=== PATIENT | female | born 1985 | race Caucasian/White ===

== ENCOUNTER 2019-11-23 01:33 | Inpatient (IN) | payer OTHER, SELFPAY ==
[2019-11-23] VITALS (153 sets, daily range): BP systolic 86–248; BP diastolic 45–221; PULSE 57–212; RESP 17; TEMP 35.9–36.8; O2SAT 70–100; BMI 26.9
--- NOTE | 2019-11-23 02:17 | LDADM ---
This patient, Yvonne Galindo, was admitted to Labor/Delivery/Recovery 103 on 11/23/19 at 01:33. Plans for labor, pain management and were discussed with patient. Patient/family oriented to hospital policies and general routines including ID bracelet, bed and alarms, visiting hours, pain management, procedures, bathroom and other care routines, personal items, smoking policy, room service/diet and guest tray routines, security routines, and visiting hours. Patient/Family are encouraged to report perceived risks to care and to ask questions if they do not understand what they are told or what they should do. See OBIX for further documentation.
[2019-11-23 02:25] LABS: Basophils Absolute Auto 0.1 K/mm3 (0.0-0.1); Basophils Percent Auto 0.5 % (0.2-1.2); Eosinophils Absolute Auto 0.2 K/mm3 (0-0.3); Eosinophils Percent Auto 1.4 % (0-4.4); Hemoglobin 12.8 g/dL (12.0-15.0); Immature Granulocyte Absolute 0.05 K/mm3 (0.00-0.031); Immature Granulocyte Percent A 0.4 % (0-0.5); Lymphocytes Absolute Auto 3.96 K/mm3 (0.9-3.2); Lymphocytes Percent Auto 35.2 % (18.3-44.2); Mean Corpuscular HGB Conc 33.7 g/dl (32-36); Mean Corpuscular Hemoglobin 31.6 pg (26-34); Mean Corpuscular Volume 93.8 fl (80-100); Mean Platelet Volume 11.3 fl (7.4-10.4); Monocytes Absolute Auto 0.9 K/mm3 (0.1-0.6); Monocytes Percent Auto 8.3 % (2.6-8.5); Neutrophils Absolute Auto 6.1 K/mm3 (1.3-6.7); Neutrophils Percent Auto 54.2 % (45.5-73.1); Platelet Count Result 213 k/mm3 (150-375); Red Blood Count 4.05 M/mm3 (4.2-5.4); Red Cell Distribution Width 12.6 % (11.5-14.5); White Blood Count 11.3 K/mm3 (4.5-10.0)
--- NOTE | 2019-11-23 05:50 | P.PNAN_ITS ---
Anes - Eval Pre Procedure Procedure: labor epidural Date/Time: 11/23/19 05:50 Surgeon: stanislav Pre Op Diagnosis: Leaking Patient Data Age: 34 Gender: F Height: 1.77 m Weight: 84 kg Last Vital Signs Temp 35.9 C L 11/23/19 02:14 Pulse 70 11/23/19 05:46 BP 111/72 11/23/19 05:46 Allergies Allergy/AdvReac Type Severity Reaction Status Date / Time No Known Allergies Allergy Unverified 06/23/18 12:25 Home Medications Medication Instructions Recorded Confirmed Type PNV cmb#95-ferrous fumarate-FA 1 tablet PO DAILY 11/05/19 11/05/19 History [] Laboratory Tests 11/23/19 11/23/19 11/23/19 02:06 02:06 02:06 WBC 11.3 K/mm3 H K/mm3 (4.5-10.0) RBC 4.05 M/mm3 L M/mm3 (4.2-5.4) Hgb 12.8 g/dL g/dL (12.0-15.0) Hct 38.0 % % (37.0-47.0) MCV 93.8 fl fl (80-100) MCH 31.6 pg pg (26-34) MCHC 33.7 g/dl g/dl (32-36) RDW 12.6 % % (11.5-14.5) Plt Count 213 k/mm3 k/mm3 (150-375) MPV 11.3 fl H fl (7.4-10.4) Immature Gran % (Auto) 0.4 % % (0-0.5) Neut % (Auto) 54.2 % % (45.5-73.1) Lymph % (Auto) 35.2 % % (18.3-44.2) [place] % (Auto) 8.3 % % (2.6-8.5) Eos % (Auto) 1.4 % % (0-4.4) Baso % (Auto) 0.5 % % (0.2-1.2) Lymph # (Auto) 3.96 K/mm3 H K/mm3 (0.9-3.2) [place] # (Auto) 0.9 K/mm3 H K/mm3 (0.1-0.6) Eos # (Auto) 0.2 K/mm3 K/mm3 (0-0.3) Baso # (Auto) 0.1 K/mm3 K/mm3 (0.0-0.1) Abs Immat Gran (auto) 0.05 K/mm3 H K/mm3 (0.00-0.031) Absolute Neuts (auto) 6.1 K/mm3 K/mm3 (1.3-6.7) Absolute Nucleated RBC 0.0 K/mm3 K/mm3 (0.0-0.012) Nucleated RBC % 0.0 % % (0.0-0.2) RPR Pending Blood Type B Positive Antibody Screen Negative Patient hx anesthesia problems: none Family hx anesthesia problems: none [facility] Family History Family History (Updated 11/05/19 @ 13:35 by Luca Kent RN) Other No pertinent family history Social History Social History Smoking status: Never smoker Second hand tobacco smoke exposure: No Substance use: never Gender identity (if verbalized by the patient): Female Spiritual care concerns: No Exam Day of Procedure 11/23/19 05:50
[2019-11-23 07:06] LABS: Rapid Plasma Reagin Non-Reactive (NonReactive)
[2019-11-23] MEDS: LACTATED RINGERS 1,000 ML 999 ML IV CONT ×2 (07:52→08:25)
--- NOTE | 2019-11-23 08:09 | WPDOBADMIT ---
Obstetrics - Admit Note Admission Note: 34y/o G1 @ 38w2d here with spontaneous rupture of membranes at 1am. complicated by LGA. Last u/s EFW was 6lb 4oz which was the 87% with hc @ >99% on 10-27-19.Pt was due to have u/s tomorrow. Contractions regular FHR category 1 Cervix 4-5cm per RN Planning epidural Anticipate record reviewed. No pertinent additions to the history and/or any subsequent changes in the physical findings that are not consistent with the expected course of the were found. Additions to the history and/or subsequent changes in the physical findings follow. None.
[2019-11-23] MEDS: LACTATED RINGERS 1,000 ML 125 ML IV CONT (09:48)
[2019-11-23] MEDS: OXYTOCIN 30 UNITS/NS 500 ML 30 UNITS/500 ML BAG 999 UNITS IV CONT (16:50)
[2019-11-23] MEDS: OXYTOCIN 30 UNITS/NS 500 ML 30 UNITS/500 ML BAG 125 UNITS IV CONT (17:16)
--- NOTE | 2019-11-23 17:20 | P.PCNOB_ITS ---
OB - Delivery Note Procedure Delivery date: 11/23/19 Procedure: Vacuum assisted vaginal delivery Intrapartal events: None Induction method: none Delivery monitor: external FHT and external uterine Route of delivery: vacuum extraction Complications: FHR down into the 70-90's. Very minimial increase to baseline in between contractions. Dr Yates notified and asked to come over d/t possible need to apply vacuum. Discussed with pt and . Dr Yates arrived and verified presentation. Vacuum applied. Used with great success for 2 contractions. H eartones improved so vacuum was not reapplied. Midline epis cut and infant delivered on the next contraction. Baby Date of : 11/23/19 Time of : 16:44 Weeks of gestation at delivery: 38 Infant gender: Male Weight (pounds): 7 Weight (ounces): 10 presentation: vertex position: Right Occiput Anterior Placenta delivery description: Spontaneous (accessory lobe) cord vessel description: Nuchal Cord, Loose and Reduced score one minute: 8 score five minutes: 9
[2019-11-23] MEDS: BENZOCAINE 20% AER SPR (*SP) 56 GM CAN 1 SPRAY TOPICAL (18:43)
[2019-11-23] MEDS: IBUPROFEN 600 MG TABLET PO (18:43)
[2019-11-23] MEDS: WITCH HAZEL 40 PADS 1 PAD TOPICAL (18:43)
[2019-11-23] MEDS: ACETAMINOPHEN 325 MG TABLET 650 MG PO (22:50)
[2019-11-24] MEDS: IBUPROFEN 600 MG TABLET PO ×4 (02:38→22:46)
--- NOTE | 2019-11-24 03:33 | OBPPTRN ---
Patient transferred to post room #284 via wheelchair with in crib. Support person present. Oriented to unit, room, information board, rooming in, admission packet and security measures. Patient verbalizes understanding.
[2019-11-24] MEDS: ACETAMINOPHEN 325 MG TABLET 650 MG PO (04:21)
[2019-11-24 04:39] LABS: Hemoglobin 10.7 g/dL (12.0-15.0)
--- NOTE | 2019-11-24 07:42 | P.PNOB_ITS ---
OB - PN: Subj Subjective Date/time seen: 11/24/19 07:42 Patient comments: no complaints, pain well controlled and other (Lochia similar to menses) [place] baby status: doing well OB - PN: Obj Data Labs CBC & Chem 7: 11/24/19 04:14 Labs: Laboratory Results - last 24 hr 11/24/19 04:14 Hgb 10.7 L Hct 32.0 L OB - PN A/P Plan day: 1 (s/p vaginal delivery, doing well) Plan: routine care Time Spent With Patient Time: Total time spent is greater than 50% in coordination of care (as d ocumented) at patient's floor/unit and/or counseling patient: Exam Const: General: no acute distress GI: Inspection: other (Fundus firm and nontender at umbilicus) GI Palp: Yes Soft to palpation and No Tenderness to palpation present (GI) Extrem: General: no edema
[2019-11-24 07:50] VITALS: BP 113/80; PULSE 70; RESP 18; TEMP 37; O2SAT 97
[2019-11-24] MEDS: MULTIVIT/MIN/PREN/FOL AC/IRON TABLET 1 TAB PO (08:14)
[2019-11-24] MEDS: DOCUSATE SODIUM 100 MG CAPSULE PO ×2 (08:14→16:00)
[2019-11-24] MEDS: LANOLIN (LANSINOH) 7.5 GM CREAM 1 APPLIC TOPICAL (08:15)
[2019-11-24] MEDS: WITCH HAZEL 40 PADS 1 PAD TOPICAL (08:21)
[2019-11-24] MEDS: BENZOCAINE 20% AER SPR (*SP) 56 GM CAN 1 SPRAY TOPICAL (08:21)
--- NOTE | 2019-11-24 09:45 | PC.NURSE ---
Mother called out for assist with feeding, reporting is sleepy. Reviewed feeding cues, frequencies, duration of feedings, feeding elimination flow sheet, and signs of adequate intake. Demonstrated stimulation techniques to wake for feeding. Assisted with to breast. Reviewed positioning/alignment, holding breast and asymmetrical latch on. Infant was sleepy making no atempt to latch. Advised to skin to skin and attempt again in 30 min.
--- NOTE | 2019-11-24 10:35 | PC.NURSE ---
Consult with pt. Demonstrated stimulation techniques to wake for feeding. Several minutes of stimulation to wake infant. Assisted with infant to breast. Reviewed positioning/alignment in cross cradle, holding breast in U hold and guided asymmetrical latch on. Discussed rational for each. was able to latch correctly. nursed slowly at first needing constant stimulation, within a few minutes began nursing eagerly, with steady draws and occasional swallowing noted. Reviewed signs of a correct latch, effective nursing and suck swallow ratio. Infant was able to maintain latch without discomfort to mother. Nipple care reviewed. Advised to continue to stimulate to keep awake and nursing effectively for increased intake and to assist with maintaining deep latch. Instructed mother to call out for RN assistance if she is unable to latch infant for feeding or she has discomfort with nursing. Instructed feeding should be initiated three hours from start of last feeding or if feeding cues are noted before. Mother voiced understanding of information shared.
--- NOTE | 2019-11-24 13:45 | PC.NURSE ---
Mother called out for assist with feeding. Demonstrated stimulation techniques to wake for feeding. Several minutes of stimulation to wake . Assisted with to breast. Reviewed positioning/alignment in cross cradle, holding breast in U hold and guided asymmetrical latch on. Discussed rational for each. Infant was able to latch correctly. Infant nursed slowly at first needing constant stimulation, within a few minutes began nursing eagerly, with steady draws and occasional swallowing noted. Reviewed signs of a correct latch, effective nursing and suck swallow ratio. Infant was able to maintain latch without discomfort to mother. Nipple care reviewed. Advised to continue to stimulate to keep awake and nursing effectively for increased intake and to assist with maintaining deep latch. Instructed mother to call out for RN assistance if she is unable to latch for feeding or she has discomfort with nursing. Instructed feeding should be initiated three hours from start of last feeding or if feeding cues are noted before. Mother voiced understanding of information shared.
[2019-11-24 20:03] VITALS: BP 120/79; PULSE 81; RESP 17; TEMP 37.1
[2019-11-25] MEDS: IBUPROFEN 600 MG TABLET PO ×2 (06:05→12:33)
--- NOTE | 2019-11-25 07:39 | P.PNOB_ITS ---
OB - PN: Subj Subjective Date/time seen: 11/25/19 07:39 Patient comments: no complaints baby status: doing well [facility] feeding status: exclusively breast feeding OB - PN: Obj Data Labs CBC & Chem 7: 11/24/19 04:14 OB - PN A/P Plan day: 2 Plan: discharge home Time Spent With Patient Time: Total time spent is greater than 50% in coordination of care (as documented) at patient's floor/unit and/or counseling patient: Review of Systems Review of Systems: All systems reviewed & are unremarkable except as noted in HPI and below Constitutional: Constitutional: Reports as per HPI Exam Const: General: comfortable Resp: Effort & Inspection: normal respiratory effort Psych: Appearance: grossly normal Affect: normal affect Attitude: cooperative
--- NOTE | 2019-11-25 07:39 | PM.OBDSVD ---
OB - DS: Summary OB Procedures : None OB Procedures Intrapartum: Vacuum extraction OB Procedures: : None Time Spent with Patient Time attestation: Total time spent providing and/or coordinating discharge services: Exam Const: General: comfortable Resp: Effort & Inspection: normal respiratory effort DS: Data Data Completed and Pending Pending studies at discharge: Pending at discharge 11/23/19 16:49 Surgical [PTH] Routine Discharge Plan Discharge Attending physician on discharge: Vasu Yates Consulting providers: Paddy Benton Discharging Clinician: Lexi Prince Patient Disposition: Home, Self-Care Activity: pelvic rest Diet: regular Patient Instructions: Antibiotic Form Stand Alone Forms: General Discharge Information Follow-up/Referrals: Deirdre Ramirez CNM [Certified Nurse Director Of Parks And Recreation] - Discharge Medications: Continued PNV cmb#95-ferrous fumarate-FA [] 28 mg iron- 800 mcg Tablet 1 tablet PO DAILY RF: 0 Date of admission: 11/23/19 01:33 Primary Care Provider: PHYSICIAN,MANUFACTURING WEAVER Admitting Provider: Vasu Yates Attending physician on admission: Vasu Yates
[2019-11-25 08:35] VITALS: BP 98/63; PULSE 69; RESP 18; TEMP 36.9; O2SAT 99
[2019-11-25] MEDS: MULTIVIT/MIN/PREN/FOL AC/IRON TABLET 1 TAB PO (08:48)
--- NOTE | 2019-11-25 09:27 | PC.NURSE ---
Patient viewed the discharge video Mother & Baby Care, The First Two Weeks . Patient was given the opportunity and encouraged to ask questions. Patient verbalized understanding of information shared and has been given the mother/baby guide for home reference.
[2019-11-26 10:27] VITALS: BP 130/69; PULSE 80; RESP 18; TEMP 37.1
== END 2019-11-25 13:30 | disposition home or self-care (01) | DRG 807 ==
LOC: ANHLDR 02:13 → ANHOB2 20:19
PROVIDERS: Advanced Practice Midwife; Admitting Provider Obstetrics & Gynecology; Visit Provider Obstetrics & Gynecology
DX: O36.63X0 Maternal care for excessive fetal growth, third trimester, not applicable or unspecified (principal); Z37.0 Single live birth; Z3A.38 38 weeks gestation of pregnancy; O36.8330 Maternal care for abnormalities of the fetal heart rate or rhythm, third trimester, not applicable or unspecified; O69.81X0 Labor and delivery complicated by cord around neck, without compression, not applicable or unspecified
CPT/HCPCS: 36415; 85014; 85018; 85025; 86592; 86850; 86900; 86901; 88307; A9270; J2590; J2795; J3010; J7120

== ENCOUNTER 2021-09-09 19:51 | Observation (INO) | payer OTHER, SELFPAY ==
[2021-09-09] VITALS (14 sets, daily range): BP systolic 114; BP diastolic 59; PULSE 67–77; TEMP 36.8; O2SAT 99–100; BMI 26.4
--- NOTE | 2021-09-09 20:18 | OBADM ---
This patient, Yvonne Galindo, admitted to the OB room OB Post 117 for observation. Patient/family oriented to hospital policies and general routines including ID bracelet, bed and alarms, visiting hours, pain management, procedures, bathroom and other care routines, personal items, smoking policy, room service/diet, and visiting hours. Patient/Family are encouraged to report perceived risks to care and to ask questions if they do not understand what they are told or what they should do.
[2021-09-09 20:41] LABS: Basophils Percent Auto 0.3 % (0.2-1.2); Eosinophils Absolute Auto 0.1 K/mm3 (0-0.3); Eosinophils Percent Auto 0.7 % (0-4.4); Hemoglobin 11.4 g/dL (12.0-15.0); Immature Granulocyte Absolute 0.02 K/mm3 (0.00-0.031); Immature Granulocyte Percent A 0.2 % (0-0.5); Lymphocytes Absolute Auto 1.73 K/mm3 (0.9-3.2); Lymphocytes Percent Auto 16.5 % (18.3-44.2); Mean Corpuscular HGB Conc 32.6 g/dl (32-36); Mean Corpuscular Hemoglobin 32.3 pg (26-34); Mean Corpuscular Volume 99.2 fl (80-100); Mean Platelet Volume 9.8 fl (7.4-10.4); Monocytes Absolute Auto 0.6 K/mm3 (0.1-0.6); Monocytes Percent Auto 5.5 % (2.6-8.5); Neutrophils Absolute Auto 8.1 K/mm3 (1.3-6.7); Neutrophils Percent Auto 76.8 % (45.5-73.1); Platelet Count Result 172 k/mm3 (150-375); Red Blood Count 3.53 M/mm3 (4.2-5.4); Red Cell Distribution Width 12.7 % (11.5-14.5); White Blood Count 10.5 K/mm3 (4.5-10.0)
[2021-09-09] MEDS: FAMOTIDINE 20 MG TABLET PO (20:46)
[2021-09-09 20:54] LABS: Add Urine Microscopic? YES; Appearance Urine Cloudy (Clear); Bilirubin Urine Negative (Negative); Blood Urine Negative (Negative); Color Urine Yellow (Yellow); Glucose Urine UA Negative (Negative); Ketones Urine Negative (Negative); Leukocyte Esterase Ur Negative LEU/UL (NEGATIVE); Mucus Urine Rare /lpf; Nitrate Urine Negative (Negative); Protein Urine Negative (Negative); Specific Grav Ur 1.016 (1.001-1.035); Squamous Epithelial Cell Urine Occasional /hpf (Few); WBC Urine 0-3 /hpf (0-3)
[2021-09-09] MEDS: SIMETHICONE 80 MG TAB.CHEW PO (21:16)
--- NOTE | 2021-09-13 08:02 | P.PNOB_ITS ---
OB - Triage/Final Diagnosis Visit Information Date of evaluation: 09/09/21 Reason for evaluation: threatened labor Comments/Additional reasons for admission: I have assessed the risk for this patient, Yvonne Galindo, and determined that she would benefit from observation care. Evaluation Laboratory results: Laboratory Tests 09/09/21 09/09/21 20:30 20:30 WBC 10.5 H RBC 3.53 L Hgb 11.4 L Hct 35.0 L MCV 99.2 MCH 32.3 MCHC 32.6 RDW 12.7 Plt Count 172 MPV 9.8 Immature Gran % (Auto) 0.2 Neut % (Auto) 76.8 H Lymph % (Auto) 16.5 L [place] % (Auto) 5.5 Eos % (Auto) 0.7 Baso % (Auto) 0.3 Lymph # (Auto) 1.73 [place] # (Auto) 0.6 Eos # (Auto) 0.1 Baso # (Auto) 0.0 Abs Immat Gran (auto) 0.02 Absolute Neuts (auto) 8.1 H Absolute Nucleated RBC 0.0 Nucleated RBC % 0.0 Urine Color Yellow Urine Appearance Cloudy H Urine pH 6.0 Ur Specific [place] 1.016 Urine Protein Negative Urine Glucose (UA) Negative Urine Ketones Negative Ur Blood (Man) Negative Urine Nitrate Negative Urine Bilirubin Negative Urine Urobilinogen 2.0 H Ur Leukocyte Esterase Negative Urine RBC 3-5 H Urine WBC 0-3 Ur Squamous Epith Cells Occasional Urine Mucus Rare
== END 2021-09-09 21:18 | disposition home or self-care (01) ==
PROVIDERS: Advanced Practice Midwife; Admitting Provider Obstetrics & Gynecology; PCP Nurse Practitioner Adult Health; Visit Provider Obstetrics & Gynecology
DX: O47.03 False labor before 37 completed weeks of gestation, third trimester (principal); Z3A.29 29 weeks gestation of pregnancy
CPT/HCPCS: 36415; 81001; 85025; A9270; G0378; G0379

== ENCOUNTER 2021-10-31 17:00 | Inpatient (IN) | payer OTHER, SELFPAY ==
[2021-10-31] VITALS (8 sets, daily range): BP systolic 113–128; BP diastolic 66–78; PULSE 74–89; TEMP 36.5
--- NOTE | ~2021-10-31 | US_ITS ---
EXAMINATION: US OB limited w BPP DATE: 10/31/2021 17:59 INDICATION: Nonreactive NST. TECHNIQUE: Real-time ultrasound of the pelvis was performed. COMPARISON: None. FINDINGS: There is a single living fetus in vertex presentation. The placenta is fundal/posterior. heart rate is 153 beats per minute (bpm). The amniotic fluid index is 9.14 cm, which is normal (fifth to 9 5th percentile range is 7.7 to 24.9 cm).] Biophysical profile performed by the technologist: breathing (30 sec sustained breathing in 30 minutes): 0 out of 2 movement (3 gross body movements in 30 minutes: 2 out of 2 tone (one episode of bktykuh-skszvjjqq-qwbwlom limb movement): 2 out of 2 Amniotic fluid pocket (2 cm): 2 out of 2 Total score: 6 out of 8 IMPRESSION: 1. Single living fetus in [vertex presentation.] 2. Normal placenta. 3. Biophysical profile 6 out of 8. 4. Normal RAJAN of 9.14. Reviewed, dictated and finalized at location K.
--- NOTE | 2021-10-31 18:31 | OBADM ---
This patient, Yvonne Galindo, admitted to the OB room Labor/Delivery/Recovery 104 for observation. Patient/family oriented to hospital policies and general routines including ID bracelet, bed and alarms, visiting hours, pain management, procedures, bathroom and other care routines, personal items, smoking policy, room service/diet, and visiting hours. Patient/Family are encouraged to report perceived risks to care and to ask questions if they do not understand what they are told or what they should do.
[2021-11-01] VITALS (64 sets, daily range): BP systolic 87–153; BP diastolic 47–128; PULSE 65–101; RESP 18; TEMP 36.6–37.1; O2SAT 99–100; BMI 28.0
--- NOTE | 2021-11-01 07:30 | P.HP_ITS ---
H&P: HPI History of Present Illness Date/Time: 11/01/21 07:30 pt admitted overnight for monitoring for dece lerations in the office, BPP 6/8. Overnight had noted late deceleration and another prolonged deceleration. pt has no complaints currently and is resting Chief Complaint: Decreased movement Review of Systems Review of Systems: All systems reviewed & are unremarkable except as noted in HPI and below PMFSH Family History Family History (Updated 10/27/21 @ 15:39 by Mateo Ibarra RN) Mother Stage 4 lung cancer Grandparent Cancer Social History Social History Smoking status: Never smoker Second hand tobacco smoke exposure: No Substance use: never Gender identity (if verbalized by the patient): Female Spiritual care concerns: No Meds Home Medications and Allergies Home Medications Medication Instructions Recorded Confirmed Type PNV cmb#95-ferrous fumarate-FA 1 tablet PO DAILY 11/05/19 11/05/19 History [] Allergies Allergy/AdvReac Type Severity Reaction Status Date / Time No Known Allergies Allergy Verified 10/27/21 15:38 Vital Signs Vital Signs - 24 hr 10/31/21 17:00 10/31/21 17:08 10/31/21 17:15 Temperature 36.5 C Pulse Rate 74 75 Blood Pressure 115/67 118/66 Pulse Oximetry 10/31/21 17:30 10/31/21 17:45 10/31/21 18:00 Temperature Pulse Rate 80 89 85 Blood Pressure 120/70 123/69 128/78 Pulse Oximetry 10/31/21 18:15 10/31/21 21:04 11/01/21 00:31 Temperature Pulse Rate 77 81 Blood Pressure 113/66 126/75 Pulse Oximetry 99 11/01/21 01:57 11/01/21 02:02 Temperature 36.6 C Pulse Rate 75 Blood Pressure 106/60 Pulse Oximetry Exam Const: General: cooperative, healthy appearing and comfortable Assessment and Plan Assessment and plan (1) Non-reassuring cardiotocographic tracing: Code(s): O36.8390 - Maternal care for abnormalities of the heart rate or rhythm, unspecified trimester, not applicable or unspecified Status: Acute Additional Plan 36.6 nonreassuring heart rate discussed with Dr. Camacho and plan for delivery
--- NOTE | 2021-11-01 08:08 | LDADM ---
This patient, Yvonne Galindo, was admitted to Labor/Delivery/Recovery 104 on 11/01/21 at 07:42. Plans for labor, pain management and were discussed with patient. Patient/family oriented to hospital policies and general routines including ID bracelet, bed and alarms, visiting hours, pain management, procedures, bathroom and other care routines, personal items, smoking policy, room service/diet and guest tray routines, security routines, and visiting hours. Patient/Family are encouraged to report perceived risks to care and to ask questions if they do not understand what they are told or what they should do. See OBIX for further documentation.
--- NOTE | 2021-11-01 09:16 | P.PNAN_ITS ---
Anes - Eval Pre Procedure Procedure: Labor epidural Date/Time: 11/01/21 09:16 Surgeon: Rahul Preop Diagnosis: Abd pain with contractions Pre Op Diagnosis: Induction of Labor Patient Data Age: 36 Gender: F Height: 1.75 m Weight: 86 kg Last Vital Signs Temp 97.9 F 11/01/21 02:02 Pulse 75 11/01/21 01:57 BP 106/60 11/01/21 01:57 Pulse Ox 99 11/01/21 00:31 Allergies Allergy/AdvReac Type Severity Reaction Status Date / Time No Known Allergies Allergy Verified 10/27/21 15:38 Home Medications Medication Instructions Recorded Confirmed Type PNV cmb#95-ferrous fumarate-FA 1 tablet PO DAILY 11/05/19 11/01/21 History [] : gestational age (edc 11/23/21) HCG: positive Patient hx anesthesia problems: none Family hx anesthesia problems: none Results Review: All pre-operative results and documents have been reviewed as part of the pre-operative evaluation. [facility] Family History Family History (Updated 10/27/21 @ 15:39 by Mateo Ibarra RN) Mother Stage 4 lung cancer Grandparent Cancer Social History Social History Smoking status: Never smoker Second hand tobacco smoke exposure: No Substance use: never Gender identity (if verbalized by the patient): Female Spiritual care concerns: No Exam Day of Procedure 11/01/21 09:16
[2021-11-01 11:24] LABS: Basophils Percent Auto 0.3 % (0.2-1.2); Eosinophils Absolute Auto 0.1 K/mm3 (0-0.3); Eosinophils Percent Auto 0.8 % (0-4.4); Hemoglobin 12.8 g/dL (12.0-15.0); Immature Granulocyte Absolute 0.04 K/mm3 (0.00-0.031); Immature Granulocyte Percent A 0.4 % (0-0.5); Lymphocytes Percent Auto 20.9 % (18.3-44.2); Mean Corpuscular HGB Conc 32.8 g/dl (32-36); Mean Corpuscular Hemoglobin 31.9 pg (26-34); Mean Corpuscular Volume 97.3 fl (80-100); Mean Platelet Volume 10.1 fl (7.4-10.4); Monocytes Absolute Auto 0.9 K/mm3 (0.1-0.6); Monocytes Percent Auto 9.3 % (2.6-8.5); Neutrophils Absolute Auto 6.2 K/mm3 (1.3-6.7); Neutrophils Percent Auto 68.3 % (45.5-73.1); Platelet Count Result 202 k/mm3 (150-375); Red Blood Count 4.01 M/mm3 (4.2-5.4); White Blood Count 9.1 K/mm3 (4.5-10.0)
--- NOTE | 2021-11-01 13:11 | PM.OBPNLAB ---
Pain Control Date/time seen: 11/01/21 13:11 SVE /-2, AROm moderate amount of clear odorless discharge, anticipate vaginal delivery
[2021-11-01 14:15] LABS: Rapid Plasma Reagin Non-Reactive (NonReactive)
[2021-11-01] MEDS: LACTATED RINGERS 1,000 ML 125 ML IV CONT ×2 (15:24→16:31)
[2021-11-01] MEDS: OXYTOCIN 30 UNITS/NS 500 ML 30 UNITS/500 ML BAG IV CONT (15:24)
--- NOTE | 2021-11-01 18:09 | P.PCNOB_ITS ---
OB - Delivery Note Procedure Delivery date: 11/01/21 Procedure: vaginal delivery Events: Other (non reassuring heart rate) Induction method: AROM and Per Pitocin Protocol Delivery monitor: External FHT and External Uterine Route of delivery: Episiotomy description: Right Mediolateral (pt consented to procedure) Delivery repair: vicryl Specimen: Yes Quantitative Blood Loss (ml): 25 Anesthesia type: Epidural Disposition: Floor [place] Baby Date of : 11/01/21 Time of : 17:46 Weeks of gestation at delivery: 36 Infant gender: Male Weight (pounds): 6 Weight (ounces): 14 presentation: vertex position: Left Occiput Anterior Placenta delivery description: Spontaneous Cord Vessel Description: 3 Vessels and Clamped/Cut score one minute: 9 score five minutes: 9 Narrative: mother and baby in stable condition
[2021-11-01] MEDS: OXYTOCIN 30 UNITS/NS 500 ML 30 UNITS/500 ML BAG 125 UNITS IV CONT (18:28)
[2021-11-01] MEDS: IBUPROFEN 600 MG TABLET PO (19:37)
[2021-11-01] MEDS: BENZOCAINE 20% AER SPR (*SP) 56 GM CAN 1 SPRAY TOPICAL (20:26)
[2021-11-01] MEDS: WITCH HAZEL 40 PADS 1 PAD TOPICAL (20:26)
--- NOTE | 2021-11-01 20:29 | OBPPTRN ---
Patient transferred to post room #286 via w/c. Support person present. Oriented to unit, room, information board, rooming in, admission packet and security measures. Patient verbalizes understanding.
[2021-11-01] MEDS: ACETAMINOPHEN 325 MG TABLET 650 MG PO (22:34)
[2021-11-02 04:00] VITALS: BP 96/67; PULSE 60; RESP 18; TEMP 36.6
[2021-11-02] MEDS: IBUPROFEN 600 MG TABLET PO ×3 (04:03→21:15)
[2021-11-02] MEDS: ACETAMINOPHEN 325 MG TABLET 650 MG PO ×3 (05:22→21:15)
[2021-11-02 05:51] LABS: Hematocrit 35.6 % (37.0-47.0); Hemoglobin 11.8 g/dL (12.0-15.0)
[2021-11-02 07:47] VITALS: BP 111/75; PULSE 67; RESP 18; TEMP 36.6; O2SAT 98
--- NOTE | 2021-11-02 08:17 | P.PNOB_ITS ---
OB - PN: Subj Subjective Date/time seen: 11/02/21 08:17 Patient comments: no complaints, pain well controlled, incisional pain, tolerating diet and flatus present OB - PN: Obj Data Labs CBC & Chem 7: 11/02/21 04:08 Labs: Laboratory Results - last 24 hr 11/01/21 11/01/21 11/01/21 11:17 11:17 11:17 WBC 9.1 RBC 4.01 L Hgb 12.8 Hct 39.0 MCV 97.3 MCH 31.9 MCHC 32.8 RDW 13.0 Plt Count 202 MPV 10.1 Immature Gran % (Auto) 0.4 Neut % (Auto) 68.3 Lymph % (Auto) 20.9 [place] % (Auto) 9.3 H Eos % (Auto) 0.8 Baso % (Auto) 0.3 Lymph # (Auto) 1.90 [place] # (Auto) 0.9 H Eos # (Auto) 0.1 Baso # (Auto) 0.0 Abs Immat Gran (auto) 0.04 H Absolute Neuts (auto) 6.2 Absolute Nucleated RBC 0.0 Nucleated RBC % 0.0 RPR Non-reactive Blood Type B Positive Antibody Screen Negative 11/02/21 04:08 WBC RBC Hgb 11.8 L Hct 35.6 L MCV MCH MCHC RDW Plt Count MPV Immature Gran % (Auto) Neut % (Auto) Lymph % (Auto) [place] % (Auto) Eos % (Auto) Baso % (Auto) Lymph # (Auto) [place] # (Auto) Eos # (Auto) Baso # (Auto) Abs Immat Gran (auto) Absolute Neuts (auto) Absolute Nucleated RBC Nucleated RBC % RPR Blood Type Antibody Screen OB - PN A/P Plan day: 1 Plan: routine care Comments: No problems, routine care Time Spent With Patient Time: Total time spent is greater than 50% in coordination of care (as documented) at patient's floor/unit and/or counseling patient: Exam Const: General: comfortable, no acute distress and alert Resp: Effort & Inspection: normal respiratory effort Auscultation: no crackles, no rales and no rhonchi Cardio: Rate: regular rate Heart sounds: no click, no murmurs and no rubs GI: Inspection: non-distended GI Palp: No Tenderness to palpation present (GI) Auscultation: normal bowel sounds Other: Incision - CDI Extrem: General: normal to inspection, no pedal edema and no calf tenderness
[2021-11-02] MEDS: MULTIVIT/MIN/PREN/FOL AC/IRON TABLET 1 TAB PO (09:16)
--- NOTE | 2021-11-02 09:48 | PC.NURSE ---
0845 - Introductions were made, then consulted with patient to assess needs related to her 36w6d . Mother led the conversation with her experience feeding her infant so far and states it has been going well with no pain . Mother plans to breastfeed in the hospital, then pump and feed at home. Parents have a plan in place to supplement infant with formula as well related to low blood sugar. Infant is in the nursery getting circumcised . Reviewed stimulating breast either with good effective 8-12 times in a 24 hour period or pumping 8 times in 24 hours (1-2 times at night) Encouraged mother to pump breast until empty once her milks comes in. Prevention of engorgement was reviewed. Nipple care reviewed with optimal latch and good positioning. Resources used to facilitate learning were used with the mom and baby guide. Mother voiced understanding of responsive feedings, stimulating infant with skin to skin, hand expressed colostrum, touch, talking to to encourage if it has been 2 -3 hours since the start of the last , to call if infant does not latch or there is discomfort with . Reported to the primary RN.
--- NOTE | 2021-11-02 11:03 | PC.NURSE ---
1015 - Father of baby is supplementing with formula due to a blood sugar of 33. Mother desires to pump now due to not interested in at this time. 1040 - Breast pump provided due to ineffective feeding. Instructions given on cleaning, care, usage, there should be no pain, pumping schedule for milk production, collection, and storage of human milk. Parents are encouraged to record pumping schedule on the feeding sheet. Minimal colostrum expressed and finger fed to by mother. Patient was assessed for correct placement, flange size, to pump for comfort and nipple stretching/stimulation for adequate milk production. Mother voiced understanding of the education shared. Reported to the primary RN.
[2021-11-02 11:45] VITALS: BP 108/64; PULSE 68; RESP 18; TEMP 36.1; O2SAT 98
--- NOTE | 2021-11-02 15:43 | PC.NURSE ---
1515 - Consulted with patient to assess needs related to . Mother led conversation with her experience with feeding baby so far. Mother works well with her with encouragement. Father of baby bottle fed at 1230. BS checked at 37. Reviewed working with , breast, nipples and how to protect the nipples with an optimal deep latch, good positioning, and good hand washing. Encouraged understanding the benefits of skin to skin, responding to feeding cues, frequencies of feeding 8-12 times in 24 hours (approximately 2-3 hours), duration of feedings, milk production, intake/output feeding sheet and signs of adequate intake encouraging swallowing at the breast. Reviewed positioning and alignment, supporting breast, off-centered (asymmetrical latch) and leading with the chin with big open wide gape. Infant latched optimally to the left breast in cross cradle position. Education given to mother of how to visualize suck/swallow ratios and drinking at the breast. was able to maintain latch without discomfort to mother. Then infant detached and optimally latched to the right breast in cross cradle with no discomfort to mother. Nipple care reviewed with optimal latch and good positioning, comfort, healing with warm, wet washcloth to rinse breast, then leave open to air-dry, colostrum may be left on nipples to dry but have clean hands when touching the nipple/breast as needed. Resources used to facilitate learning were used from the visual handout/mom and baby guide. Mother voiced understanding of the education shared, calling for assistance if the infant does not latch or if there is discomfort with . Reported to the primary RN.
[2021-11-02 16:00] VITALS: BP 104/68; PULSE 80; RESP 18; TEMP 36.6
[2021-11-02] MEDS: WITCH HAZEL 40 PADS 1 PAD TOPICAL (17:12)
[2021-11-02] MEDS: BENZOCAINE 20% AER SPR (*SP) 56 GM CAN 1 SPRAY TOPICAL (17:12)
[2021-11-02 19:00] VITALS: BP 108/72; PULSE 78; RESP 18; TEMP 36.9
[2021-11-03] MEDS: IBUPROFEN 600 MG TABLET PO (05:17)
[2021-11-03 07:40] VITALS: BP 105/72; PULSE 73; RESP 16; TEMP 36.9; O2SAT 98
--- NOTE | 2021-11-03 09:30 | PM.OBPNVD ---
OB - PN: Subj Subjective Date/time seen: 11/03/21 09:30 Patient comments: no complaints baby status: doing well OB - PN: Obj Data Labs CBC & Chem 7: 11/02/21 04:08 OB - PN A/P Plan day: 2 Plan: routine care and discharge home Time Spent With Patient Time: Total time spent is greater than 50% in coordination of care (as documented) at patient's floor/unit and/or counseling patient: Review of Systems Review of Systems: All systems reviewed & are unremarkable except as noted in HPI and below Exam Const: General: cooperative, healthy appearing and comfortable
--- NOTE | 2021-11-03 09:31 | PM.OBDSVD ---
DS: Admitting Diagnosis Discharge Date 11/03/21 Admitting Diagnosis IOL, non reassuring heart tones OB - DS: Summary OB Procedures : None OB Procedures Intrapartum: Spontaneous Vag Delivery OB Procedures: : None Time Spent with Patient Time attestation: Total time spent providing and/or coordinating discharge services: DS: Data Data Completed and Pending Pending studies at discharge: Pending at discharge 11/01/21 17:52 Surgical [PTH] Routine Discharge Plan Discharge Attending physician on discharge: Vasu Yates Discharging Clinician: Lexi Prince Patient Disposition: Home, Self-Care Activity: pelvic rest Diet: regular Patient Instructions: Antibiotic Form Stand Alone Forms: General Discharge Information Follow-up/Referrals: Lexi Prince, CNM [Certified Nurse Cardiac Cath Lab Manager] - 4 Weeks Discharge Medications: Continued PNV [id number] fumarate-FA [] 28 mg iron- 800 mcg Tablet 1 tablet PO DAILY RF: 0 Date of admission: 11/01/21 07:42 Primary Care Provider: MelisaAlba Admitting Provider: Vasu Yates Attending physician on admission: Vasu Yates Condition: Stable
[2021-11-03] MEDS: ACETAMINOPHEN 325 MG TABLET 650 MG PO (10:23)
[2021-11-03] MEDS: MULTIVIT/MIN/PREN/FOL AC/IRON TABLET 1 TAB PO (10:23)
[2021-11-03] MEDS: LANOLIN (LANSINOH) 7.5 GM CREAM 1 APPLIC TOPICAL (11:16)
--- NOTE | 2021-11-03 13:31 | PC.NURSE ---
0830 Breast feeding note; Met with mother and FOB; baby sleeping. Motehr states she is breast feeding infant, pumping and bottle feeding . Reviewed how to assess that baby is latched and nursing effectively with maintained latch, vigorous, rhythmic sucking, allowing infant to stay at breast if feeding is effective. If baby is sleepy, or not latching, then bottle feed and pump; discussed that because baby was born early, 36 6/7, baby will be more eager at some feedings at the breast, and possibly some not as eager. Mother taught breast massage hand expression and encouraged to do breast massage before breast feeding/ pumping, and hand expression at the end of a breast feeding or pumping session. She is to continue at least 8, to 12 pumping sessions a day, 15 minutes. Baby should be fed 8-12 times a day for breast feeding, and with formula supplementation, at least q3-4 hours. Mother shown breast feeding information in Mother-Baby guide for home reference, and encouraged to reach out to the office at [place] for any questions, or to be seen for help with getting infant to latch to feed. Mother seemed to be leaning to pumping and bottle feeding; reinforced importance of continued, consistent pumping. Baby's next feeding at about 1030; parents encouraged to call out for assistance with getting to latch. Mother voiced understanding of all information shared. 1100 Mother did not call for LC to return to room for a feeding.
[2021-11-04 10:36] VITALS: BP 111/69; PULSE 73; RESP 16; TEMP 36.7; O2SAT 98
== END 2021-11-03 11:43 | disposition home or self-care (01) | DRG 807 ==
LOC: ANHLDR 11-01 07:51 → ANHOB2 11-03 09:31 → ANHLDR 11-03 11:01 → ANHOB2 11-03 11:01
PROVIDERS: Advanced Practice Midwife; Admitting Provider Obstetrics & Gynecology; PCP Nurse Practitioner Adult Health; Visit Provider Obstetrics & Gynecology
DX: O36.8330 Maternal care for abnormalities of the fetal heart rate or rhythm, third trimester, not applicable or unspecified (principal); Z37.0 Single live birth; Z3A.36 36 weeks gestation of pregnancy
CPT/HCPCS: 36415; 76815; 76819; 84112; 85014; 85018; 85025; 86592; 86850; 86900; 86901; 88307; A9270; J2590; J2795; J7120

== ENCOUNTER 2021-12-26 18:47 | Emergency (ER) | payer OTHER, SELFPAY ==
[2021-12-26 19:03] VITALS: BP 110/69; PULSE 74; RESP 18; TEMP 36.5; O2SAT 98
--- NOTE | 2021-12-26 19:35 | ED.URI ---
HPI - URI/Sore Throat General Chief Complaint: Upper Respiratory Infection Stated Complaint: sorethroat Time Seen by Provider: 12/26/21 19:30 Source: patient, RN notes reviewed and old records reviewed Mode of arrival: ambulatory Limitations: no limitations History of Present Illness HPI Narrative: 36-year-old female who presents to [facility] with complaints of sore throat, strange taste in mouth, bad breath and headache for the past 2 days. Patient reports that she has not been exposed to any known sick contacts, she is presently breast feeding 2 month old son. Patient reports that she has not had any fevers chills or sweats or any body aches, has not had COVID or vaccinations or any flu shot .Patient reports that she has noted some white pus pckets on her left tonsil. MD elicited complaint: sore throat Onset (ago): day(s) (2) Pain scale (0-10): 4 Treatments prior to arrival: none Related Data Allergies Allergy/AdvReac Type Severity Reaction Status Date / Time No Known Allergies Allergy Verified 12/26/21 19:20 Review of Systems Review of Systems: CONSTITUTIONAL: Denies fever, chills, or sweats. EYES: Denies visual changes, redness, or discharge. ENT: Denies rhinorrhea, congestion, positive for sore throat, no otalgia, pus pocket left tonsil CARDIOVASCULAR: Denies chest pain, palpitations, or edema. RESPIRATORY: Denies cough or dyspnea. GASTROINTESTINAL: Denies abdominal pain, nausea, vomiting, or diarrhea. GENITOURINARY: Denies dysuria or hematuria. SKIN: Denies rash or itching. MUSCULOSKELETAL: Denies back pain, joint pain, or myalgia. NEUROLOGIC: Positive for headache,no numbness, or weakness. PSYCHIATRIC: Denies anxiety or depression. All systems reviewed & are unremarkable except as noted in HPI and below PMFSH Past Medical History Medical History (Updated 12/27/21 @ 12:06 by Krystina Beaulieu NP) UTI (urinary tract infection) Family History Family History Mother Stage 4 lung cancer Grandparent Cancer Social History Social History Smoking status: Never smoker Second hand tobacco smoke exposure: No Substance use: never Gender identity (if verbalized by the patient): Female Spiritual care concerns: No Comments At time of signature, agree with nursing past medical, surgical, social and family history. There is no relevant family history pertinent to the presenting complaint Exam Narrative: GENERAL: Well-appearing, well-nourished, and in no acute distress. HEAD: Normocephalic, atraumatic. EYES: PERRLA and EOMI. ENT: Nares clear, no rhinorrhea or epistaxis. Mucous membranes moist.TM's normal with good light reflex, throat red with white lesions noted to left tonsil with both tonsils red and swollen NECK: Supple. lymphadenopathy CHEST: Clear to auscultation. No respiratory distress.SAO2 98% on room air HEART: Regular rate and rhythm. No murmur heard. Normal peripheral pulses. ABDOMEN: Soft, nontender, nondistended, normal active bowel sounds. EXTREMITIES: Normal range of motion. No edema. SKIN: Warm, dry, no rash. NEURO: No focal deficits. Alert and oriented x3. Course Course Level of Care: Express Care Visit Vital Signs Vital signs: Vital Signs Temperature 36.5 C 12/26/21 19:03 Pulse Rate 74 12/26/21 19:03 Respiratory Rate 18 12/26/21 19:03 Blood Pressure 110/69 12/26/21 19:03 Pulse Oximetry 98 12/26/21 19:03 Oxygen Delivery Room Air 12/26/21 19:03 Temperature 36.5 C 12/26/21 19:03 Pulse Rate 74 12/26/21 19:03 Respiratory Rate 18 12/26/21 19:03 Blood Pressure 110/69 12/26/21 19:03 Pulse Oximetry 98 12/26/21 19:03 Oxygen Delivery Room Air 12/26/21 19:03 MDM - URI/Sore Throat Differential Diagnosis Differential diagnosis: Likely upper respiratory infection, sinusitis, viral infection, pharyngitis and other (Strep pharyngitis, tonsil
== END 2021-12-26 19:56 | disposition home or self-care (01) ==
PROVIDERS: Emergency Provider Registered Nurse; PCP Nurse Practitioner Adult Health
DX: J03.90 Acute tonsillitis, unspecified (principal); Z20.822 Contact with and (suspected) exposure to COVID-19
CPT/HCPCS: 87081; 87426; 87880; 99213; C9803; G0463

== ENCOUNTER 2022-12-06 08:03 | Emergency (ER) | payer OTHER, SELFPAY ==
--- NOTE | 2022-12-06 08:05 | ED.URI ---
HPI - URI/Sore Throat General Chief Complaint: Upper Respiratory Infection Stated Complaint: Sore throat Time Seen by Provider: 12/06/22 08:24 Source: patient and RN notes reviewed Mode of arrival: ambulatory Limitations: no limitations History of Present Illness HPI Narrative: 37-year-old female presents with concern for sore throat, itchy eyes, watery eyes, runny nose, stuffy nose. She reports 2 day history of symptoms. She denies fever, body aches, chills, sweats. She denies stomachache, vomiting. Reports headache. Denies known sick contacts. 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 EYES: Denies visual changes, redness, or discharge. ENT: Reports rhinorrhea, congestion, sore throat. Denies sinus pain, otalgia CARDIOVASCULAR: Denies chest pain, palpitations, or edema. RESPIRATORY: Denies cough. Denies dyspnea. GASTROINTESTINAL: Denies abdominal pain, nausea, vomiting, diarrhea SKIN: Denies rash or itching. MUSCULOSKELETAL: Denies myalgia. NEUROLOGIC: Reports headache. All systems reviewed & are unremarkable except as noted in HPI and below PMFSH Past Medical History Medical History (Updated 12/06/22 @ 08:32 by Joelle Sandoval NP) UTI (urinary tract infection) Family History Family History Mother Stage 4 lung cancer Grandparent Cancer Social History Social History Smoking status: Never smoker Second hand tobacco smoke exposure: No Substance use: never Gender identity (if verbalized by the patient): Female Spiritual care concerns: No Comments At time of signature, agree with nursing past medical, surgical, social and family history. There is no relevant family history pertinent to the presenting complaint Exam Narrative: GENERAL: Well-appearing, well-nourished, and in no acute distress. HEAD: Normocephalic EYES: PERRLA, conjunctivae clear ENT: Nares clear, turbinates edematous and erythematous, clear discharge. Mucous membranes moist. TM pearly loyd with dull light reflex bilaterally; no tragal tenderness. Oropharynx erythematous without lesions. Tonsils not enlarged and without exudate, no drooling, no hoarseness, no trismus, uvula midline. NECK: Supple. No lymphadenopathy CHEST: Clear to auscultation, breath sounds equal. No wheezing, rhonchi, rales, or stridor. No respiratory distress, speaks in full sentences. HEART: Regular rate and rhythm. No murmur heard. SKIN: Warm, dry, no rash. NEURO: Alert and oriented x3. PSYCH: Normal mood and affect Course Course Emergency Course: Patient is aware of diagnosis, understands and agrees to treatment plan. Anticipatory guidance given. Patient agrees to follow-up as directed and is aware of reasons to seek care at the emergency department. Portions of this record may have been created with voice recognition software Level of Care: Express Care Visit Vital Signs Vital signs: Reviewed. MDM - URI/Sore Throat MDM Narrative Medical decision making narrative: Differential diagnosis considered: Rose virus, strep pharyngitis, allergic rhinitis, upper respiratory tract infection, sinusitis, rhinosinusitis, nasopharyngitis. viral pharyngitis, otitis media, otitis externa, pneumonia, bronchitis, viral cough syndrome, viral syndrome, and influenza. Exam findings show no acute concerns or changes; patient is non-toxic appearing and is in no distress. Patient is appropriate for outpatient treatment and follow-up. Lab Data Attestation: I reviewed the patient's lab results. Critical Care Time Critical Care Time Critical Care Time: No Discharge Plan Discharge Clinical Impression: Upp
[2022-12-06 08:12] VITALS: BP 116/74; PULSE 78; RESP 18; TEMP 36.3; O2SAT 100
== END 2022-12-06 08:35 | disposition home or self-care (01) ==
PROVIDERS: Emergency Provider Nurse Practitioner; PCP Family Medicine
DX: J06.9 Acute upper respiratory infection, unspecified (principal)
CPT/HCPCS: 87081; 87880; 99213; G0463

== ENCOUNTER → 2023-08-13 15:27 | Outpatient (CLI) | payer OTHER, SELFPAY ==
--- NOTE | ~2023-08-13 | XR_ITS ---
Lumbosacral Spine: AP, oblique, and lateral views Clinical History: Pain Findings: The normal lordotic curve is maintained. The vertebral bodies and posterior elements are i ntact. The intervertebral disc spaces are preserved. The sacroiliac joints are normally outlined. Impression: No significant abnormality. Reviewed, dictated and finalized at [facility]. E CUTTING SUPERVISOR Impression: No significant abnormality.
== END ==
PROVIDERS: PCP Physician Assistant; Visit Provider Physician Assistant
DX: M54.50 Low back pain, unspecified (principal)
CPT/HCPCS: 72110

== ENCOUNTER 2023-09-26 16:02 | Outpatient (CLI) | payer OTHER, SELFPAY ==
--- NOTE | ~2023-09-26 | MR_ITS ---
EXAMINATION: MR lumbar spine wo con DATE: 09/26/2023 16:33 INDICATION: Low back pain, unspecified. TECHNIQUE: Magnetic resonance imaging (MRI) of the lumbar spine was performed without intravenous con trast. COMPARISON: Lumbar spine radiographs 08/13/2023 FINDINGS: Bone alignment is normal. There are Schmorl's nodes from T11-T12 through L1-L2. Interverteb ral disc heights are normal. The distal spinal cord signal intensity is normal. The conus medullaris is at T12-L1. The following disc levels are specifically discussed: L1-L2: The disc does not extend beyond the endplate margin. There is mild bilateral facet joint osteo arthritis. There is no neural foraminal stenosis. There is no central canal stenosis. L2-L3: The disc does not extend beyond the endplate margin. There is mild bilateral facet joint osteo arthritis. There is no neural foraminal stenosis. There is no central canal stenosis. L3-L4: The disc does not extend beyond the endplate margin. There is moderate bilateral facet joint o steoarthritis. There is no neural foraminal stenosis. There is no central canal stenosis. L4-L5: The disc is bulging. There is mild bilateral facet joint osteoarthritis. There is mild bilater al neural foraminal stenosis. There is mild central canal stenosis. L5-S1: The disc is bulging. There is mild bilateral facet joint osteoarthritis. There is mild bilater al neural foraminal stenosis. There is mild central canal stenosis. IMPRESSION: 1. Mild lumbar spondylosis. Reviewed, dictated and finalized at location E. DRILL OPERATOR HELPER IMPRESSION: 1. Mild lumbar spondylosis.
== END 2023-09-26 16:03 ==
LOC: MICIMG 16:03
PROVIDERS: PCP Physician Assistant; Visit Provider Physician Assistant
DX: M47.896 Other spondylosis, lumbar region (principal)
CPT/HCPCS: 72148

== ENCOUNTER 2024-06-27 08:43 | Emergency (ER) | payer OTHER, SELFPAY ==
--- NOTE | ~2024-06-27 | XR_ITS ---
EXAMINATION: XR chest 2V DATE: 06/27/2024 09:42 INDICATION: Fever and cough. TECHNIQUE: Frontal and lateral views of the chest were obtained. COMPARISON: None. FINDINGS: There are airspace opacities in left lower lobe, consistent with pneumonia. There is mild s carring at the lung apices. No pleural effusion or pneumothorax. The heart size is normal. IMPRESSION: 1. Left lower lobe pneumonia. Reviewed, dictated and finalized at location A. [employer]
[2024-06-27 08:53] VITALS: BP 114/66; PULSE 94; RESP 16; TEMP 36.9; O2SAT 97
--- NOTE | 2024-06-27 09:30 | ED_ITS ---
HPI - General Adult General Chief complaint: Upper Respiratory Infection Stated complaint: illness Time Seen by Provider: 06/27/24 09:30 Source: patient Mode of arrival: ambulatory Limitations: no limitations History of Present Illness HPI narrative: 38-year-old female patient presents to [facility] with complaints of cold symptoms for the past 4-5 days. Patient states she has had a fever as high as 101, fatigue, coughing, congestion runny nose, body aches chills and sweats. Patient states that her step kids were sick earlier in the week with some runny noses but no fevers. Patient states she has just been taking [id number] NyQuil for her symptoms. Related Data Allergies Allergy/AdvReac Type Severity Reaction Status Date / Time No Known Allergies Allergy Verified 06/27/24 09:13 Review of Systems Review of Systems: CONSTITUTIONAL: positive fever, body aches and chills, positive sweats. positive fatigue EYES: Denies visual changes, redness, or discharge. ENT: positive rhinorrhea, congestion, denies sore throat, or otalgia. CARDIOVASCULAR: Denies chest pain, palpitations, or edema. RESPIRATORY: positive cough with intermittent dyspnea. GASTROINTESTINAL: Denies abdominal pain, nausea, vomiting, or diarrhea. GENITOURINARY: Denies dysuria or hematuria. SKIN: Denies rash or itching. MUSCULOSKELETAL: Denies back pain, joint pain, or myalgia. NEUROLOGIC: Denies headache, numbness, or weakness. PSYCHIATRIC: Denies anxiety or depression. [facility] Family History Family History Mother Stage 4 lung cancer Grandparent Cancer Social History Social History Smoking status: Never smoker Second hand tobacco smoke exposure: No Alcohol intake: current Substance use: never Substance use type: does not use Do You Feel Safe in your Home?: Yes Lack of Transportation: No Lack of Food: Sometimes True Current Housing: I Have Housing Concerned About Future Housing: No Difficulty Paying Gas/Electric Bills: No Difficulty Paying for Meds: No Currently Unemployed: YES Education: Bachelor's Degree Difficulty w/ Childcare or Family Care: No Living arrangements: with family Occupation/Education: other 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 There is no relevant family history pertinent to the presenting complaint. Exam Narrative: GENERAL: ill-appearing, well-nourished, and in no acute distress. HEAD: Normocephalic, atraumatic. EYES: PERRLA and EOMI. ENT: Nares with erythema edema noted bilateral, no rhinorrhea or epistaxis. Mucous membranes moist. posterior pharynx with no erythema, tonsillar enlargement, exudates or lesions present. NECK: Supple. No lymphadenopathy CHEST: Clear to auscultation. No respiratory distress. Patient able talk in clear complete sentences coughing noted during exam. HEART: Regular rate and rhythm. No murmur heard. Normal peripheral pulses. ABDOMEN: Soft, nontender, nondistended, normal active bowel sounds. EXTREMITIES: Normal range of motion. No edema. SKIN: Warm, dry, no rash. NEURO: No focal deficits. Alert and oriented x3. Course Course Level of Care: Express Care Visit Reevaluation(s) Reevaluation #1: re-evaluated patient notified patient that she is positive today for pneumonia on her x-ray. All other test did come back negative. Discussed with patient will discharge her home with an antibiotic, steroids, inhaler Tessalon Perles for the cough. Discussed with patient if her symptoms worsen or she has significant increase in coughing, chest pain or shortness of breath that she needs to be seen in the emergency department. Patient is aware the plan of care denies any other questions or concerns at this time. Date: 06/27/24 Time: 10:00 Vital Signs Vital signs: Vital Signs Temperature 36.9 C 06/27/24 08:53 Pulse Rate 94 06/27/24 08:53 Respiratory Rate 16 06/27/24 08:53 Blood Pressure 114/66 06/27/24 08:53 Pulse Oximetry 97 06/27/24 08:53 Temperature 36.9 C 06/27/24 08:53 Pulse Rate 94 06/27/24 08:53 Respiratory Rate 16 06/27/24 08:53 Blood Pressure 114/66 06/27/24 08:53 Pulse Oximetry 97 06/27/24 08:53 Vital signs reviewed Medical Decision Making MDM Narrative Medical decision making narrative: Plan care patient is to swab her today for COVID, influenza and do a chest x- ray on her since she is running fevers and does have a cough we have been seeing quite a bit of pneumonia recently. I will reassess patient once this has resulted. Differential Diagnosis Differential Diagnosis: differential diagnosis: Allergic rhinitis, chronic sinusitis, tonsillitis, acute sinusitis, infectious mononucleosis, seasonal influenza, pertussis, diphtheria, meningococcal disease, viral syndrome, viral bronchitis, RSV, COVID- 19 Vital Signs Vital Signs: Vital Signs Temperature 36.9 C 06/27/24 08:53 Pulse Rate 94 06/27/24 08:53 Respiratory Rate 16 06/27/24 08:53 Blood Pressure 114/66 06/27/24 08:53 Pulse Oximetry 97 06/27/24 08:53 Temperature 36.9 C 06/27/24 08:53 Pulse Rate 94 06/27/24 08:53 Respiratory Rate 16 06/27/24 08:53 Blood Pressure 114/66 06/27/24 08:53 Pulse Oximetry 97 06/27/24 08:53 Lab Data Labs: Lab Results 06/27/24 06/27/24 06/27/24 Range/Units 09:36 09:36 09:36 POC Influenza A Ag Negative Negative (Negative) POC Influenza B Ag Negative Negative (Negative) POC SARS CoV-2 Ag Negative (Negative) 06/27/24 Range/Units 09:36 POC Influenza A Ag (Negative) POC Influenza B Ag (Negative) POC SARS CoV-2 Ag Negative (Negative) Imaging Data Radiologist's impression: Close Chest X-Ray (Signed) Josr Rivera - 06/27/24 Launch?[facility] [address] [address] XRay Report Signed Patient: Yvonne Galindo : 1985 MR#: [id number] Age: 38 Acct:[id number] Loc: [facility] ADM Date: 06/27/24Attending Dr: Ordering Physician: Tabitha Garcia APRN Date of Service: 06/27/24 Procedure(s): XR chest 2V Accession Number(s): [id number] cc: Jose Luis Rainey MD; Tabitha Garcia APRN~ EXAMINATION: XR chest 2V DATE: 06/27/2024 09:42 INDICATION: Fever and cough. TECHNIQUE: Frontal and lateral views of the chest were obtained. COMPARISON: None. FINDINGS: There are airspace opacities in left lower lobe, consistent with pneumonia. There is mild scarring at the lung apices. No pleural effusion or pneumothorax. The heart size is normal. IMPRESSION: 1. Left lower lobe pneumonia. Reviewed, dictated and finalized at location A. O MANAGER Dictated By: Josr Rivera MD 06/27/24 0950 Signed By: <Electronically signed by Josr Rivera MD in OV> Critical Care Time Critical Care Time Critical Care Time: No Discharge Plan Discharge Clinical Impression: Community acquired pneumonia Qualifiers: Laterality: left Lung location: lower lobe of lung Qualified Code(s): J18.9 - Pneumonia, unspecified organism Patient Disposition: Home, Self-Care Condition: Stable Instructions: Antibiotic Form, Community Acquired Pneumonia (ED) Additional Instructions: Take your medication exactly as directed. Don't skip doses. Continue taking your antibiotics as directed until they are all gone - even if you start to feel better. This will prevent the pneumonia from coming back. Drink at least 8 glasses of water daily, unless directed otherwise. This helps to loosen and thin secretions so that you can cough them up. Use a cool-mist humidifier in your bedroom. Be sure to clean the humidifier daily. Coughing up mucus is normal. Don't use medications to suppress your cough unless your cough is dry, painful, or interferes with your sleep. You may use an exp ectorant if ordered by your doctor. Warm compresses or a heating pad on the lowest setting can be used to relieve chest discomfort. Use several times a day for 15 to 20 minutes at a time. (To prevent injuring your skin, be sure the temperature of the compress or heating pad is warm, not hot.) Get plenty of rest until your fever, shortness of breath, and chest pain go away. Plan to get a flu shot every year. Ask your doctor about pneumonia vaccinations. Call 911 right away if you have any of the following: Chest pain Trouble breathing Blue lips or fingernails Otherwise, call your doctor if you have any of the following: Fever above 101.5?F (38.6?C) Yellow, green, bloody, or smelly sputum More than normal mucus production Vomiting Prescriptions: New azithromycin 250 mg tablet See Rx Instructions .ROUTE .COMPLEX Qty: 6 0RF Rx Instructions: For 250 mg dose pack: take 500 mg today (day 1), then 250 mg for 4 days (days 2-5) benzonatate 200 mg capsule 200 mg PO TID PRN (Reason: cough) 10 Days Qty: 30 0RF prednisone 20 mg tablet 40 mg PO DAILY 5 Days Qty: 10 0RF albuterol sulfate [Ventolin HFA] 90 mcg/actuation HFA aerosol inhaler 2 puff INHALATION .Q4 hours PRN (Reason: cough) Qty: 18 0RF Follow-up/Referrals: Jose Luis Rainey MD [Primary Care Provider] - Time of Disposition: 09:58
[2024-06-27 09:37] LABS: EDCOVIDSCREEN Negative (Negative); EDINFLUASCREEN Negative (Negative); EDINFLUBSCREEN Negative (Negative)
[2024-06-27 09:38] LABS: EDCOVIDSCREEN Negative (Negative); EDINFLUASCREEN Negative (Negative); EDINFLUBSCREEN Negative (Negative)
== END 2024-06-27 10:10 | disposition home or self-care (01) ==
PROVIDERS: Emergency Provider Nurse Practitioner Family; PCP Family Medicine
DX: J18.1 Lobar pneumonia, unspecified organism (principal); Z20.822 Contact with and (suspected) exposure to COVID-19
CPT/HCPCS: 71046; 87426; 87804; 99213; G0463